=== PATIENT | male | born 1995 | race Caucasian/White ===

== ENCOUNTER 2016-12-08 04:46 | Emergency (ER) | payer OTHER ==
[~2016-12-08] VITALS: Ht 180.3 cm; Wt 95.3 kg
[2016-12-08 04:46] VITALS: BP_SYST 141
[2016-12-08 05:25] VITALS: BP_SYST 141
== END 2016-12-08 05:25 ==
LOC: SED 04:46
DX: Z02.89 Encounter for other administrative examinations (principal)